=== PATIENT | female | born 1975 | race Hispanic/Latino ===

== ENCOUNTER 2018-07-02 20:30 | Emergency (ER) | payer OTHER, SELFPAY ==
[2018-07-02 20:42] VITALS: BMI 28.1
[2018-07-02] MEDS ORDERED: Sodium Chloride 0.9% 1,000 ML IV STA (21:23)
--- NOTE | 2018-07-02 21:39 | ED PDOC ---
Arrival/HPI <Julio Singh - Last Filed: 07/02/18 22:17> - General Historian: Patient - History of Present Illness Narrative History of Present Illness (Text): 07/02/18 21:20 Cony Rios is a 42 year old female who presents to the Emergency department complaining of lower abdominal cramping with dysuria since yesterday. Patient also reports 2 episodes of diarrhea yesterday with 2 episodes of diarrhea today. Patient states she went to the [facility] satellite ER, was given Tylenol and IV fluids, but nothing else was done, which is why she is now here. Patient denies any nausea, vomiting, recent travel, or fever. Of note, patient's heart rate in ED is in the 110s-120s. Patient denies any chest pain, dizziness, palpitations, shortness of breath, or any other complaints. Patient states it is normal for her to have fluctuations in her heart rate due to her anxiety and notes her PMD is aware of this. Patient reports she has never seen a service person. PMD Lakhwinder Symptom Onset: Gradual Symptom Course: Unchanged Activities at Onset: Light Context: Home <Gi Pleitez PA-C - Last Filed: 07/03/18 00:19> - General Chief Complaint: Abdominal Pain Time Seen by Provider: 07/02/18 20:48 Past Medical History - Provider Review Nursing Documentation Reviewed: Yes - Infectious Disease Hx of Infectious Diseases: None - Reproductive Menopause: No - Cardiac Hx Cardiac Disorders: No - Pulmonary Hx Respiratory Disorders: No - Neurological Hx Neurological Disorder: No - HEENT Hx HEENT Disorder: No - Renal Hx Renal Disorder: No - Endocrine/Metabolic Hx Endocrine Disorders: No - Hematological/Oncological Hx Blood Disorders: No - Integumentary Hx Dermatological Disorder: No - Musculoskeletal/Rheumatological Hx Musculoskeletal Disorders: No - Gastrointestinal Hx Gastrointestinal Disorders: No - Genitourinary/Gynecological Hx Genitourinary Disorders: No - Psychiatric Hx Psychophysiologic Disorder: No Hx Substance Use: No - Anesthesia Hx Anesthesia: No <Gi Pleitez PA-C - Last Filed: 07/03/18 00:19> Family/Social History - Physician Review Nursing Documentation Reviewed: Yes Family/Social History: Unknown Family HX Smoking Status: Never Smoked Hx Alcohol Use: No Hx Substance Use: No <Gi Pleitez PA-C - Last Filed: 07/03/18 00:19> Allergies/Home Meds <Julio Singh - Last Filed: 07/02/18 22:17> <Gi Pleitez PA-C - Last Filed: 07/03/18 00:19> Allergies/Adverse Reactions: Allergies Penicillins Allergy (Verified 07/02/18 21:23) RASH Review of Systems - Physician Review All systems were reviewed & negative as marked: Yes - Review of Systems Constitutional: Normal. absent: Fevers Eyes: Normal ENT: Normal Respiratory: Normal. absent: SOB, Cough Cardiovascular: Normal. absent: Chest Pain Gastrointestinal: Abdominal Pain, Diarrhea. absent: Nausea, Vomiting Genitourinary Female: Dysuria Musculoskeletal: Normal. absent: Back Pain, Neck Pain Skin: Normal. absent: Rash Neurological: Normal. absent: Headache, Dizziness Endocrine: Normal Hemo/Lymphatic: Normal Psychiatric: Normal <Gi Pleitez PA-C - Last Filed: 07/03/18 00:19> Physical Exam Vital Signs Temp Pulse Resp BP Pulse Ox 07/02/18 20:41 98.6 F 150 H 20 140/88 99 <Julio Singh - Last Filed: 07/02/18 22:17> Vital Signs Reviewed: Yes Vital Signs Temp Pulse Resp BP Pulse Ox 07/02/18 20:41 98.6 F 150 H 20 140/88 99 Temperature: Afebrile Blood Pressure: Normal Pulse: Tachycardic Respiratory Rate: Normal Appearance: Positive for: Well-Appearing, Non-Toxic, Comfortable Pain Distress: None Mental Status: Positive for: Alert and Oriented X 3 - Systems Exam Head: Present: Atraumatic, Normocephalic Pupils: Present: PERRL Extroacular Muscles: Present: EOMI Conjunctiva: Present: Normal Mouth: Present: Moist Mucous Membranes Neck: Present: Normal Range of Motion Respiratory/Chest: Present: Clear to Auscultation, Good Air Exchange. No: Respiratory Distress, Accessory Muscle Use Cardiovascular: Present: Normal S1, S2, Tachycardic. No: Murmurs Abdomen: Present: Tenderness (Mild suprapubic tenderness). No: Distention, Peritoneal Signs Back: Present: Normal Inspection Upper Extremity: Present: Normal Inspection. No: Cyanosis, Edema Lower Extremity: Present: Normal Inspection. No: Edema Neurological: Present: GCS=15, CN II-XII Intact, Speech Normal Skin: Present: Warm, Dry, Normal Color. No: Rashes Psychiatric: Present: Alert, Oriented x 3, Normal Insight, Normal Concentration <Gi Pleitez PA-C - Last Filed: 07/03/18 00:19> Medical Decision Making - Lab Interpretations Lab Results: Total Bilirubin 1.1 mg/dL (0.2-1.3) 07/02/18 21:33 AST 21 U/L (14-36) 07/02/18 21:33 ALT 30 U/L (7-56) 07/02/18 21:33 Alkaline Phosphatase 65 U/L (38-126) 07/02/18 21:33 Total Protein 8.4 g/dL (5.8-8.3) H 07/02/18 21:33 Albumin 4.5 g/dL (3.0-4.8) 07/02/18 21:33 Globulin 3.9 gm/dL 07/02/18 21:33 Albumin/Globulin Ratio 1.2 (1.1-1.8) 07/02/18 21:33 Lipase 35 U/L (23-300) 07/02/18 21:33 Urine Color Yellow (YELLOW) 07/02/18 21:30 Urine Appearance Slight-cloudy (CLEAR) 07/02/18 21:30 Urine pH 6.0 (4.7-8.0) 07/02/18 21:30 Ur Specific [place] 1.025 (1.005-1.035) 07/02/18 21:30 Urine Protein Trace mg/dL (<30 mg/dL) H 07/02/18 21:30 Urine Glucose (UA) Negative mg/dL (NEGATIVE) 07/02/18 21:30 Urine Ketones 40 mg/dL (NEGATIVE) H 07/02/18 21:30 Urine Blood Large (NEGATIVE) H 07/02/18 21:30 Urine Nitrate Negative (NEGATIVE) 07/02/18 21:30 Urine Bilirubin Negative (NEGATIVE) 07/02/18 21:30 Urine Urobilinogen 0.2 E.U./dL (<1 E.U./dL) 07/02/18 21:30 Ur Leukocyte Esterase Small Alexa/uL (NEGATIVE) H 07/02/18 21:30 - Medication Orders Current Medication Orders: Sodium Chloride (Sodium Chloride 0.9%) 1,000 mls @ 1,000 mls/hr IV .Q1H STA Stop: 07/02/18 22:22 Last Admin: 07/02/18 21:39 Dose: 1,000 mls/hr eMAR Start Stop Document 07/02/18 21:39 IT (Rec: 07/02/18 21:39 IT [id number]) Intravenous Solution Start Date 07/02/18 Start Time 21:39 Discontinued Medications Ketorolac Tromethamine (Toradol) 15 mg IVP STAT STA Stop: 07/02/18 21:24 Last Admin: 07/02/18 21:39 Dose: 15 mg MAR Pain Assessment Document 07/02/18 21:39 IT (Rec: 07/02/18 21:39 IT [id number]) Pain Reassessment Is this a pain reassessment? No Sleep Is patient sleeping during reassessment? No Presence of Pain Presence of Pain Yes Pain Scale Used Protocol: PSCALES Pain Scale Used Numeric IVP Administration Document 07/02/18 21:39 IT (Rec: 07/02/18 21:39 IT [id number]) Charges for Administration # of IVP Administrations 1 Nitrofurantoin Macrocrystals (Macrobid) 100 mg PO ONCE ONE; Protocol Stop: 07/02/18 22:13 <Julio Singh - Last Filed: 07/02/18 22:17> ED Course and Treatment: 07/02/18 21:23 Impression: 42 year old female complaining of lower abdominal cramping and dysuria. Pt noted to be tachycardic in 110s-120s in ED. Plan: -- EKG -- Labs, lipase, troponin -- Urinalysis, urine culture -- IV fluids -- Toradol -- Reassess and disposition Progress Notes: EKG : sinus tachycardia at [address]-segment elevations or depressions, no T-wave inversions, normal intervals. 07/02/18 22:35 On reevaluation, patient reports improvement of symptoms, denies any nausea, abdominal pain or diarrhea. On exam, patient remains awake alert and oriented 3 in no acute distress. Patient HR is in 100-110s. Diagnostic results and diagnosis of UTI d/w the patient. Given macrobid po and pyridium po. Advised to follow up with primary care physician in 1-2 days without fail, especially regarding the intermittent tachycardia and to consider seeing a service person if advised by her pmd. Advised to take medication as prescribed. Return to the emergency room at any time for any new or worsening symptoms. Patient states she fully agrees with and understands discharge instructions. States that she agrees with the plan and disposition. Verbalized and repeated discharge instructions and plan. I have given the patient opportunity to ask any additional questions. - EKG Interpretation Interpreted by ED Physician: Yes Type: 12 lead EKG - Medication Orders Current Medication Orders: Sodium Chloride (Sodium Chloride 0.9%) 1,000 mls @ 1,000 mls/hr IV .Q1H STA Stop: 07/02/18 22:22 Discontinued Medications Ketorolac Tromethamine (Toradol) 15 mg IVP STAT STA Stop: 07/02/18 21:24 <Gi Pleitez PA-C - Last Filed: 07/03/18 00:19> - PA / RN INTERNATIONAL / Resident Statement STEPHANIE has reviewed & agrees with the documentation as recorded. STEPHANIE has examined the patient and agrees with the treatment plan. <Julio iSngh - Last Filed: 07/02/18 22:17> - PA / RN INTERNATIONAL / Resident Statement STEPHANIE has reviewed & agrees with the documentation as recorded. - Scribe Statement The provider has reviewed the documentation as recorded by the Suhail Mcgregor Provider Scribe Attestation: All medical record entries made by the Kennedyibgigi were at my direction and personally dictated by me. I have reviewed the chart and agree that the record accurately reflects my personal performance of the history, physical exam, medical decision making, and the department course for this patient. I have also personally directed, reviewed, and agree with the discharge instructions and disposition. <Gi Pleitez PA-C - Last Filed: 07/03/18 00:19> Disposition/Present on Arrival <Julio Singh - Last Filed: 07/02/18 22:17> - Present on Arrival Any Indicators Present on Arrival: No History of DVT/PE: No History of Uncontrolled Diabetes: No Urinary Catheter: No History of Decub. Ulcer: No History Surgical Site Infection Following: None - Disposition Have Diagnosis and Disposition been Completed?: Yes Disposition Time: 22:30 Patient Plan: Discharge <Gi Pleitez PA-C - Last Filed: 07/03/18 00:19> - Disposition Diagnosis: Abdominal pain, UTI (urinary tract infection) Disposition: HOME/ ROUTINE Condition: STABLE Discharge Instructions (ExitCare): Urinary Tract Infections in Adults, Acute Abdomen (Belly Pain), Adult (DC) Additional Instructions: Thank you for letting us take care of you today. You were treated for abdominal pain, UTI. The emergency medical care you received today was directed at your acute symptoms. If you were prescribed any medication, please fill it and take as directed. It may take several days for your symptoms to resolve. Return to the Emergency Department if your symptoms worsen, do not improve, or if you have any other problems. Please contact your doctor in 2 days for re-evaluation and follow up. Bring any paperwork you were given at discharge with you along with any medications you are taking to your follow up visit. Our treatment cannot replace ongoing medical care by a primary care provider (PCP) outside of the emergency department. Thank you for allowing the [facility] team to be part of your care today. If you had a urine culture: It will take several days for the results, if any change in treatment is needed we will contact you. Prescriptions: Nitrofurantoin Macrocrystals [Macrobid] 100 mg PO BID #20 cap Phenazopyridine [Pyridium] 200 mg PO BID #6 tab Referrals: Cameron Estrada MD [Primary Care Provider] - Follow up with primary Forms: [employer] (Greenlandic), WORK NOTE
[2018-07-02 21:57] LABS: URINE BILIRUBIN NEGATIVE (NEGATIVE); URINE BLOOD LARGE (NEGATIVE); URINE GLUCOSE (UA) NEGATIVE (NEGATIVE); URINE LEUKOCYTE ESTERASE SMALL Leu/uL (NEGATIVE); URINE PROTEIN TRACE mg/dL (<30 mg/dL); URINE UROBILINOGEN 0.2 E.U./dL (<1 E.U./dL)
[2018-07-02 21:57] LABS: BASO # 0.03 K/mm3 (0.0-2.0); BASO % 0.2 % (0.0-3.0); EOS # 0.1 (0.0-0.7); EOS % 0.9 % (1.5-5.0); HEMOGLOBIN 12.1 g/dL (12.0-16.0); LYMPH % 13.8 % (22.0-35.0); MEAN CELL VOLUME 76.2 fl (80.0-105.0); MEAN CORPUSCULAR HGB CONC 31.4 g/dl (31.0-37.0); MEAN PLATELET VOLUME 9.5 fl (7.0-11.0); MONO # 1.2 (0.1-0.6); MONO % 8.6 % (1.0-6.0); RBC 5.05 10^6/uL (3.5-6.1); WHITE BLOOD COUNT 14.3 10^3/uL (4.5-11.0)
[2018-07-02 21:59] LABS: URINE APPEARANCE SLIGHT-CLOUDY (CLEAR); URINE COLOR YELLOW (YELLOW)
[2018-07-02 22:07] LABS: ALB/GLOB RATIO 1.2 (1.1-1.8); ALBUMIN 4.5 g/dL (3.0-4.8); ALT/SGPT 30 U/L (7-56); AST/SGOT 21 U/L (14-36); BLOOD UREA NITROGEN 7 mg/dL (7-21); CALCIUM 9.4 mg/dL (8.4-10.5); GFR NON-AFRICAN AMERICAN > 60; LIPASE 35 U/L (23-300)
[2018-07-02 22:18] LABS: URINE BACTERIA SMALL /hpf; URINE RBC 25 - 30 /hpf (0-2)
[2018-07-02 22:18] LABS: TROPONIN I < 0.01 ng/mL
[2018-07-02 22:19] LABS: URINE AMORPHOUS SEDIMENT SMALL /hpf
[2018-07-02 23:02] VITALS: BP 125/74; PULSE 98; RESP 18; TEMP 98.5; O2SAT 98
--- NOTE | 2018-07-03 10:02 | CARD ---
APPROVED REPORT Date of service: 07/02/2018 EKG Measurement Heart [id number] <Conclusion> Sinus tachycardia Cannot rule out Inferior infarct, age undetermined Abnormal ECG
== END 2018-07-02 23:02 | disposition home or self-care (01) ==
LOC: ED 20:30
DX: N39.0 Urinary tract infection, site not specified (principal); R10.30 Lower abdominal pain, unspecified
CPT/HCPCS: 80053; 81001; 81025; 83690; 83735; 84484; 85025; 87086; 93005; 96374; 99283; J1885; J7030